=== PATIENT | male | born 1975 | race Caucasian/White ===

== ENCOUNTER 2018-09-17 11:04 | Outpatient (CLI) | payer OTHER ==
--- NOTE | 2018-09-17 16:15 | CT ---
CT CORONARY ARTERY CALCIUM SCORING: HISTORY: Family history of heart disease. FINDINGS: No calcified plaque is noted in the coronary arteries. The total coronary artery calcium score is 0. No pleural or pericardial effusions are noted. There is no evidence of aneurysmal dilatation of the thoracic aorta. There are degenerative changes in the spine. The visualized lung rodrigues are unremar kable. IMPRESSION: Total coronary artery calcium score is 0. POS: OFF
== END 2018-09-17 11:05 | disposition home or self-care (01) ==
LOC: BICCT 11:04
PROVIDERS: ATTEND Family Medicine
DX: E78.5 Hyperlipidemia, unspecified (principal); I10 Essential (primary) hypertension
CPT/HCPCS: 75571